=== PATIENT | female | born 1970 | race Caucasian/White ===

== ENCOUNTER 2020-02-18 13:17 | Emergency (ER) | payer OTHER ==
[~2020-02-18] VITALS: Ht 153.7 cm; Wt 67.1 kg
[~2020-02-18 13:17] MED LIST: ACET-8386 PO; CLIN300C2 PO; INSU100S22 SUBQ; METF1000 PO; NUTR1CAP70 PO; SULF1TAB12 PO
[2020-02-18 13:20] VITALS: BP 126/74
--- NOTE | 2020-02-18 13:25 | NUR ---
PT AMBULATED TO BATHROOM, STEADY GAIT.
--- NOTE | 2020-02-18 13:26 | NUR ---
Patient ambulated to bed 4. RN evaluating patient at bedside.
--- NOTE | 2020-02-18 13:29 | NUR ---
Dr. Rios is evaluating the patient at bedside.
--- NOTE | 2020-02-18 13:32 | NUR ---
49 Y/ F PRESENTS TO ED FOR EPIGASTRIC PAIN, N/V/D X 1 DAY. PT REPORTS 5/10 UPPER ABD PAIN. ABD SOFT, BS ACTIVE X 4. PT A &O X 4. LUNGS CLEAR. RR EVEN AND UNLABORED DENIES CHEST PAIN, DYSURIA, COUGH, SOB, OR FEVER. PMH- DM, HEART MURMUR NKDA
[2020-02-18] MEDS ORDERED: NACL 0.9% 1,000 ML IV SCH (13:33)
[2020-02-18] MEDS ORDERED: DIPHENOXYLATE /ATROPINE 2.5 MG TAB PO ONE (13:35)
[2020-02-18] MEDS ORDERED: ONDANSETRON 4 MG/2 ML VIAL IVP ONE (13:35)
--- NOTE | 2020-02-18 13:40 | NUR ---
STAT LABS DRAWN, LAB CALLED TO CORRUGATOR HELPER SPECIMEN AT BEDSIDE.
[2020-02-18 14:02] LABS: BASOPHILS % (AUTO) 0.1 % (0.0-2.0); HEMATOCRIT 44.6 % (36-48); LYMPHOCYTES # (AUTO) 1.1 K/uL (2.5-16.5); MEAN CORPUSCULAR HEMOGLOBIN 29 pg (27-31); MEAN CORPUSCULAR HGB CONC 34 g/dL (33-37); MONOCYTES # (AUTO) 0.3 K/uL (0.8-1.0); MONOCYTES % (AUTO) 3.7 % (1.7-9.3); NEUTROPHILS # (AUTO) 6.9 K/uL (1.8-7.7); NEUTROPHILS % (AUTO) 83.2 % (42.2-75.2); PLATELET COUNT (AUTO) 211 K/uL (140-450); RED BLOOD CELL COUNT(AUTO) 5.19 MIL/uL (4.20-5.40); RED CELL DISTRIBUTION WIDTH 13.3 % (11.6-13.7); WHITE BLOOD COUNT (AUTO) 8.3 K/uL (4.8-10.8)
[2020-02-18 14:11] LABS: APPEARANCE,URINE CLOUDY (CLEAR); BILIRUBIN,URINE NEGATIVE (NEGATIVE); BLOOD, URINE TRACE-L (NEGATIVE); COLOR,URINE YELLOW (YELLOW); LEUKOCYTE ESTERASE ,URINE TRACE (NEGATIVE); NITRITE, URINE POSITIVE (NEGATIVE); PH,URINE 5.5 (5.0-9.0); UGLUCOSE 3+ (NEGATIVE)
[2020-02-18 14:27] LABS: ALBUMIN 3.4 g/dL (3.4-5.0); ANION GAP 10.4 (8-16); CARBON DIOXIDE 28.4 mmol/L (21-32); POTASSIUM 3.8 mmol/L (3.5-5.1)
[2020-02-18 14:56] LABS: WBC,URINE 16-25 (MOD) /HPF (0-5)
[2020-02-18 15:22] VITALS: BP 119/58
--- NOTE | 2020-02-18 15:22 | NUR ---
Patient discharged with v/s stable. Written and verbal after care instructions given and explained. Patient alert, oriented and verbalized understanding of instructions. Ambulatory with steady gait. All questions addressed prior to discharge. ID band removed. Patient advised to follow up with PMD. Rx of MACROBID, LOMOTIL, AND ZOFRAN given. Patient educated on indication of medication including possible reaction and side effects. Opportunity to ask questions provided and answered.
== END 2020-02-18 15:22 | disposition home or self-care (01) ==
LOC: MED 13:17
DX: R11.2 Nausea with vomiting, unspecified (principal); R19.7 Diarrhea, unspecified; N39.0 Urinary tract infection, site not specified; E11.65 Type 2 diabetes mellitus with hyperglycemia; Z79.899 Other long term (current) drug therapy
CPT/HCPCS: 36415; 80053; 81001; 81025; 83690; 85025; 87086; 96361; 96374; 99283; J2405; J7030

== ENCOUNTER 2024-03-26 16:33 | Emergency (ER) | payer OTHER ==
[~2024-03-26] VITALS: Ht 149.9 cm; Wt 65.8 kg
[~2024-03-26 16:33] MED LIST changes: -ACET-8386 PO; +ACET-8905 PO; +METF-1274 PO; -METF1000 PO; +SULF-954 PO; -SULF1TAB12 PO
[2024-03-26 16:46] VITALS: BP 161/82; PULSE 77; RESP 16; TEMP 98.4; O2SAT 99
[2024-03-26] MEDS ORDERED: DICL100G32 TP (18:04)
[2024-03-26] MEDS ORDERED: IBUP-2213 PO (18:04)
[2024-03-26 18:32] VITALS: BP 134/70; PULSE 80; RESP 20; TEMP 97.3; O2SAT 99
[2024-03-26] MEDS: IBUPROFEN 600 MG TAB PO ONE (18:32)
== END 2024-03-26 18:33 | disposition home or self-care (01) ==
LOC: MED 16:33
DX: M75.82 Other shoulder lesions, left shoulder (principal); E11.9 Type 2 diabetes mellitus without complications; I25.10 Atherosclerotic heart disease of native coronary artery without angina pectoris; Z79.899 Other long term (current) drug therapy; Z79.4 Long term (current) use of insulin
CPT/HCPCS: 73030; 99283